=== PATIENT | female | born 1975 | race Two or more races ===

== ENCOUNTER 2024-04-29 03:03 | Emergency (ER) | payer MEDICAID, SELFPAY ==
[2024-04-29 03:03] VITALS: BMI 23.6
[2024-04-29 03:11] VITALS: BP 117/58; PULSE 70; RESP 18; TEMP 36.8; O2SAT 100
--- NOTE | 2024-04-29 03:15 | XR_ITS ---
Examination: Wrist, left 3 views Technique: Wrist AP, oblique, lateral 3 views Date and time of exam: April 29, 2024, 0318 hrs. Indications: Patient fell today with injury to the wrist, wrist pain Findings: Acute comminuted impacted intra-articular fracture distal radial metaphysis Carpal bones intact Impression: Acute comminuted impacted intra-articular fracture distal radial metaphysis
--- NOTE | 2024-04-29 03:19 | PD.EDHAND ---
Upper Extremity Injury RME/HPI General Chief Complaint: Extremity Injury, Upper Stated Complaint: L hand pain s/p fall Time Seen by Provider: 04/29/24 03:15 Arrival date/time: 04/29/24 03:03 48F with no significant PMH presents to ED with L hand/wrist pain after trip and fall. Patient denies hitting head. Limitations: no limitations Related Data Previous Rx's ?Medication ?Instructions ?Recorded albuterol sulfate 90 mcg/actuation 2 puff inhalation QID PRN 07/19/19 aerosol inhaler shortness of breath or wheezing #18 grams sodium chloride 0.65 % nasal spray 2 spray intranasal QID #60 mL 07/19/19 aerosol (Saline Nasal) azithromycin 250 mg tablet See Rx Instructions PO .COMPLEX #6 07/20/19 tabs dextromethorphan-guaifenesin 5 10 ml PO Q8H #118 mL 07/20/19 mg-100 mg/5 mL oral liquid (Robitussin Cough-Chest Congestion DM) cefpodoxime 200 mg tablet 200 mg PO BID #4 tabs 07/29/19 folic acid 1 mg tablet 1 mg PO QDAY #30 tabs 07/29/19 vit,calcium 27-ferrous 1 tab PO DAILY #30 tabs 07/29/19 fum 60 mg iron-folic acid 1 mg tablet (Trinatal Rx 1) hydrocodone 5 mg-acetaminophen 325 1 tab PO Q4HR PRN Patient rated 11/05/19 mg tablet pain 7 to 8 #30 tabs ibuprofen 400 mg tablet 800 mg (2 x 400 mg) PO Q8HR PRN 11/05/19 Pain Scale 4-6 (Moderate #30 tabs Allergies Allergy/AdvReac Type Severity Reaction Status Date / Time No Known Allergies Allergy Verified 04/29/24 03:06 Review of Systems Review of Systems Systems Reviewed: All systems reviewed, normal except as documented Constitutional Constitutional: Reports system reviewed and no additional complaints, except as documented, Denies fever(s) and Denies headache(s) ENT Ears, Nose, Mouth, and Throat: Denies disequilibrium and Denies headache(s) Cardiovascular Cardiovascular: Reports system reviewed and no additional complaints, except as documented, Denies chest pain and Denies dyspnea Respiratory Respiratory: Reports system reviewed and no additional complaints, except as documented, Denies cough and Denies dyspnea Gastrointestinal Gastrointestinal: Reports system reviewed and no additional complaints, except as documented, Denies abdominal pain, Denies nausea and Denies vomiting Musculoskeletal Musculoskeletal: Reports as per HPI and Reports arthralgias Neurologic Neurologic: Reports system reviewed and no additional complaints, except as documented, Denies confusion, Denies disequilibrium and Denies headache(s) Psychiatric Psychiatric: Denies confusion Past Medical History Past Medical History NEUROLOGIC: Negative Neurological Disorders or Seizures CARDIAC: Negative Cardiac Disorders or Congestive Heart Failure RESPIRATORY: Negative Chronic Obstructive Pulmonary Disease (COPD) GASTROINTESTINAL: Negative Gastrointestinal Disorders or Hepatitis GENITOURINARY: Negative Genitourinary Disorders or Renal Disease MUSCULOSKELETAL: Negative Musculoskeletal Disorders ENDOCRINE: Negative Endocrine Disorders, Diabetes Mellitus Type 1 or Diabetes Mellitus Type 2 HEMATOLOGIC: Negative Blood Disorders OTHER HISTORY: Positive Hospitalization (PNEUMONIA AND CHILDBIRTH); Negative Autoimmune Disease, Down Syndrome, Developmental Delay, Shingles, Falls, Blood Transfusions, Anesthesia Reactions, MRSA, VRSA, Vancomycin-Resistant Enterococci, Human Immunodeficiency Virus (HIV), Chicken Pox, Measles, Mumps, Rubella ([place] Measles), Pertussis, Clostridium Difficile or Cancer Family History FAMILY HISTORY: Positive Family Cancer (MOTHER- SKIN CA.); Negative Family Psychiatric Problems, Family Respiratory Disorders, Family Cardiac Disorders, Family Gastrointestinal Problems or Family Surgery Surgical History SURGICAL: Positive Section (2) Social History SMOKING STATUS: Never smoker ED Exam General Limitations: Present no limitations General appearance: Present alert and in no apparent distress Head Head exam: Present atraumatic Eye Eye exam: Present normal appearance, PERRL and EOMI ENT ENT exam: Present normal exam, normal oropharynx and mucous membranes moist Neck Neck exam: Present normal inspection, full ROM and trachea midline Chest Chest inspection: Present normal inspection and symmetric chest wall rise Respiratory Respiratory exam: Present normal lung sounds bilaterally Cardiovascular Cardiovascular exam: Present regular rate, normal rhythm and normal heart sounds Abdominal Exam Abdominal exam: Present soft and normal bowel sounds Expanded Upper Extremity Exam Forearm/Wrist exam: Present tenderness (L) and swelling Back Exam Back exam: Present normal inspection and full ROM Neurological Exam Neurological exam: Present alert, oriented X3 and CN II-XII intact Psychiatric Psychiatric exam: Present normal affect and normal mood Skin Skin exam: Present warm, dry, intact and normal color Course Quality Measures none Orders Category Date Time Status Splint / Immobilizer STAT Care 04/29/24 03:26 Active XR wrist comp LT min 3V Stat Exams 04/29/24 03:15 Taken HYDROcodone*/APAP 5/325 [[place] 5/325] Med 04/29/24 03:17 Discontinued 1 tab PO X1 ONE Vital Signs Vital signs: Vital Signs Temperature 98.3 F 04/29/24 03:11 Pulse Rate 70 04/29/24 03:11 Respiratory Rate 18 04/29/24 03:11 Blood Pressure 117/58 L 04/29/24 03:11 Pulse Oximetry (%) 100 04/29/24 03:11 Oxygen Delivery Method Room Air 04/29/24 03:11 O2 at 100% on RA and WNLs Extremity Injury MDM Narrative MDM Narrative:: 48F with no significant PMH presents to ED with L hand/wrist pain after trip and fall. Patient denies hitting head. Physical exam reveals L wrist tenderness and swelling. Reduced ROM. Patient can move fingers. No anatomical snuffbox tenderness. Patient is afebrile, alert, but appears to be in pain. Wet XR read comminuted L radial fx pending official report. Given splint, meds, and treatment counselor to Dr. Salvador's office in AM to see when he can see patient. Patient data External records reviewed:: [facility] previous records Clinical information provided by:: patient Social determinants that could affect healthcare access:: none Patient has the following chronic illnesses:: none How is presenting disease/condition affected by chronic disease/condition?: no chronic disease Evaluation data The following diagnostics were reviewed and interpreted by me:: radiology exam(s) Lab and/or radiology exams considered but not ordered:: ordered Interpretation Summary: above Medications / Prescriptions Medications or Prescriptions considered but not ordered:: ordered Medication administrations:: Medication Administration History Discontinued Medications Hydrocodone Bitart/Acetaminophen (Hydrocodone/Apap 5/325 Tablet) 1 tab PO X1 ONE Stop: 04/29/24 03:18 Last Admin: 04/29/24 03:31 Dose: 1 tab Documented By: KG above Consultations Consultation(s) initiated? (list below): No Diagnosis Upper Extremity Injury Differential Diagnosis: sprain and strain of wrist, fracture of wrist, finger sprain, dislocation of finger, Colles' fracture and fracture of hand Most likely diagnosis given after review of the tests above:: wrist fx Admission Indicated Admission indicated?: not indicated Admission Request Was there a request for admission?: No Disposition Plan Disposition Plan: Discharge Discharge Attestation Discharge Attestation: The patient and all family members were given an opportunity to ask questions and understood the discharge instructions. Discharge instructions specifically effects, indications for sooner follow up or return to the emergency department, and the expected course of current diagnosis. Patient condition: Stable Discharge Plan Plan Patient Disposition: HOME (Self Care) Disposition Comment: Stable Prescriptions/Referrals Prescriptions/Med Rec: No Action albuterol sulfate 90 mcg/actuation HFA aerosol inhaler 2 puff IH QID PRN (Reason: shortness of breath or wheezing) Qty: 18 0RF sodium chloride [Saline Nasal] 0.65 % aerosol,spray 2 spray INTRANASAL QID Qty: 60 0RF hydrocodone-acetaminophen 5-325 mg Tablet 1 tab PO Q4HR MDD 6 PRN (Reason: Patient rated pain 7 to 8) Qty: 30 0RF ibuprofen 400 mg Tablet 800 mg PO Q8HR PRN (Reason: Pain Scale 4-6 (Moderate) Qty: 30 0RF Robitussin Cough-Chest Mickey DM 5-100 mg/5 mL liquid 10 ml PO Q8H Qty: 118 0RF azithromycin 250 mg tablet See Rx Instructions .ROUTE .COMPLEX Qty: 6 0RF Rx Instructions: take 500 mg today (day 1), then 250 mg for 4 days (days 2-5) folic acid 1 mg Tablet 1 mg PO QDAY Qty: 30 0RF Trinatal Rx 1 60 mg iron-1 mg Tablet 1 tab PO DAILY Qty: 30 0RF cefpodoxime 200 mg tablet 200 mg PO BID Qty: 4 0RF Rx Instructions: Please take with food. Start 07/29. Citizen Of [place]-language label. Referrals: Rolando Salvador MD [Physician] - In 1 week (Call his office in the AM. ) Problem List Clinical Impression: Fracture of wrist Patient/Caregiver Discharge Instructions Education Materials: ED Fracture, Wrist, General Additional Instructions: Please follow-up with PCP within 24-48 hours and return immediately if symptoms worsen. Call Dr. Salvador's office tomorrow to see when he can see you. Make sure to bring disk. Print Language: Citizen Of [place] Stand Alone Forms: Patient Portal Info Letter PA/[employer] Supervising Physician PA/[employer] Supervising Physician: Dr. Garcia
[2024-04-29] MEDS: HYDROcodone/APAP 5/325 TABLET 1 TAB PO (03:31)
== END 2024-04-29 03:54 | disposition home or self-care (01) ==
LOC: SERX 04:13
PROVIDERS: Emergency Provider Emergency Medicine; PCP Family Medicine
DX: S52.572A Other intraarticular fracture of lower end of left radius, initial encounter for closed fracture (principal); W01.0XXA Fall on same level from slipping, tripping and stumbling without subsequent striking against object, initial encounter
CPT/HCPCS: 29125; 73110; 99283; A9270

== ENCOUNTER → 2024-05-18 | Outpatient (CLI) | payer MEDICAID, SELFPAY ==
--- NOTE | 2024-05-18 09:52 | XR_ITS ---
Examination: Hand, left 3 views Technique: Hand AP, oblique, lateral 3 views Date and time of exam: May 18, 2024 1057 hours Comparison April 29, 2024 INDICATIONS: Acute comminuted intra-articular fracture distal radial metaphysis April 29, 2024 FINDINGS: Partial healing intra-articular comminuted fracture distal radial metaphysis, stable alignment compared with April 29, 2024 IMPRESSION: Partial healing comminuted fracture distal radial metaphysis with stable alignment compared with April 29, 2024
--- NOTE | 2024-05-18 09:52 | XR_ITS ---
Examination: Wrist, left 3 views Technique: Wrist AP, oblique, lateral 3 views Date and time of exam: May 18, 2024 1057 hours Comparison April 29, 2024 INDICATIONS: Acute intra-articular comminuted fracture distal radial metaphysis April 29, 2024 FINDINGS: Partial healing intra-articular comminuted fracture distal radial metaphysis Stable and satisfactory alignment IMPRESSION: Partial healing intra-articular comminuted fracture distal radial metaphysis Stable and satisfactory alignment
== END | disposition home or self-care (01) ==
LOC: CDIM 09:26
PROVIDERS: PCP Nurse Practitioner Gerontology; Referring Provider Nurse Practitioner Gerontology; Visit Provider Nurse Practitioner Gerontology
DX: S52.92XA Unspecified fracture of left forearm, initial encounter for closed fracture (principal); X58.XXXA Exposure to other specified factors, initial encounter
CPT/HCPCS: 73110; 73130

== ENCOUNTER 2024-08-09 16:30 | Outpatient (RCR) | payer MEDICAID, SELFPAY ==
--- NOTE | 2024-07-19 14:13 | PT.OIERPT ---
PT OP Initial Eval Patient Information Outpatient Physical Therapy Treatment Date: 07/19/24 Visit Reasons: Left hand surgery Medical Diagnosis: G56.02 S52.502 Treatment Dx #1: L hand and wrist weakness Treatment Dx #2: L wrist pain Start of Care: 07/19/24 Date of Onset: 06/09/24 Smoking Status Smoking Status: Never smoker Initial Assessment Subjective: Pt is 49 yr old female s/p fall with L distal radius FX with ORIF reports difficulty making full fist, mopping, sweeping doing HH chores. The pain is worse at night. PMH: pre-DM Imaging: Xray Partial healing intra-articular comminuted fracture distal radial metaphysis Pt goal: to make a fist, speech pathologist assistant, move like before Objective: Al speech pathologist assistant strength: L: 10 lbs, R: 42 lbs L wrist AROM: Flexion: 25 deg Extension: 0 neutral Opposition: able- thumb to all digits Fist ArOM: 50% flexion Assessment: Pt presentation consistent with referring Dx of L distal radius ORIF with decreased wrist and digit ROM, speech pathologist assistant strength and function. Pt requires skilled therapy to meet goals and has good rehab potential. Short Term and Senior Living Goals 1. Ind with HEP 2. Improved L wrist flexion and extension to 45 deg 3. Improved speech pathologist assistant strength to at least 30 lbs to open bottles 4. Pt will make a full fist Treatment Plan ?1. Manual therapy ? 2. Therex ? 3. Modalities as indicated, moist heat, ice, estim Frequency and Duration: 2x a week for 18 visits plus the evaluation. We will need provider's signature on this note to go past 12. Certification Dates: 07/19/24 to 10/18/24 Procedure Charges OP PT Eval Mod Complex 30 minutes: Yes
--- NOTE | 2024-07-26 18:27 | PT.ODAYNRPT ---
PT Outpatient Daily Note OP Daily Note Outpatient Physical Therapy Treatment Date: 07/26/24 Visit Reasons: Left hand surgery Subjective: Doing HEP of self stretches into fist Objective: MHP x5' See F/S for therex PROM into digit flexion to make fist x7' Assessment: Improved PROM of MCP's and PIPs to about 90 deg flexion but DIP's are still limited into flexion Plan: Continue per POC Length of Time (minutes) of Treatment: 30 Minutes Procedure Charges Therapeutic Exercise 30 minutes: Yes
--- NOTE | 2024-07-28 17:07 | PT.ODAYNRPT ---
PT Outpatient Daily Note OP Daily Note Outpatient Physical Therapy Treatment Date: 07/28/24 Visit Reasons: Left hand surgery Subjective: Doing HEP of self stretches into fist Objective: MHP x5' See F/S for therex PROM into digit flexion to make fist x7' Assessment: Improved PROM of MCP's and PIPs to about 90 deg flexion but DIP's are still limited into flexion. Wrist extension is limited to about 10 deg by pain. Plan: Continue per POC Length of Time (minutes) of Treatment: 30 Minutes Procedure Charges Therapeutic Exercise 30 minutes: Yes
--- NOTE | 2024-08-09 18:13 | PT.ODAYNRPT ---
PT Outpatient Daily Note OP Daily Note Outpatient Physical Therapy Treatment Date: 08/09/24 Visit Reasons: Left hand surgery Subjective: Doing HEP of self stretches into fist Objective: MHP x5' See F/S for therex PROM into digit flexion to make fist and wrist flexion/extension x7' Assessment: Improved PROM of MCP's and PIPs to about 90 deg flexion but DIP's are still limited into flexion. Wrist extension is limited to about 10 deg by pain. Plan: Continue per POC Length of Time (minutes) of Treatment: 30 Minutes Procedure Charges Therapeutic Exercise 30 minutes: Yes
== END 2024-08-15 23:59 | disposition home or self-care (01) ==
LOC: CPTX 16:30
PROVIDERS: PCP Surgery Surgery of the Hand; Referring Provider Surgery Surgery of the Hand; Visit Provider Surgery Surgery of the Hand
DX: M25.532 Pain in left wrist (principal); R53.1 Weakness; S52.502D Unspecified fracture of the lower end of left radius, subsequent encounter for closed fracture with routine healing; W19.XXXD Unspecified fall, subsequent encounter; G56.02 Carpal tunnel syndrome, left upper limb
CPT/HCPCS: 97110; 97162

== ENCOUNTER 2025-02-11 16:42 | Emergency (ER) | payer MEDICAID, SELFPAY ==
[2025-02-11 16:42] VITALS: BMI 24.4
[2025-02-11 17:24] VITALS: BP 121/73; PULSE 68; RESP 16; TEMP 36.8; O2SAT 99
--- NOTE | 2025-02-11 17:56 | PD.EDALLER ---
ED Allergic Reaction RME/HPI General Chief complaint: Allergic Reaction Stated complaint: GENERALIZED BODY HIVES & ITCHINESS X2 WEEKS Time Seen by Provider: 02/11/25 17:50 Source: patient Arrival date/time: 02/11/25 16:42 Mode of arrival: ambulatory Limitations: language barrier RME / HPI RME / HPI narrative: Patient is a very pleasant Faroese-speaking only 49-year-old female who arrives to the ED today for evaluation of global rash concerns for the past 10 days. Patient states the rash came up approximate 10 days ago and has been relatively unrelenting. Patient was seen by her primary care provider and given prednisone and an antihistamine. Patient states the medication is are not resolving the situation. Patient arrives with rash to bilateral arms and itching concerns. Vital signs were stable. Related Data Previous Rx's ?Medication ?Instructions ?Recorded albuterol sulfate 90 mcg/actuation 2 puff inhalation QID PRN 07/19/19 aerosol inhaler shortness of breath or wheezing #18 grams sodium chloride 0.65 % nasal spray 2 spray intranasal QID #60 mL 07/19/19 aerosol (Saline Nasal) azithromycin 250 mg tablet See Rx Instructions PO .COMPLEX #6 07/20/19 tabs dextromethorphan-guaifenesin 5 10 ml PO Q8H #118 mL 07/20/19 mg-100 mg/5 mL oral liquid (Robitussin Cough-Chest Congestion DM) cefpodoxime 200 mg tablet 200 mg PO BID #4 tabs 07/29/19 folic acid 1 mg tablet 1 mg PO QDAY #30 tabs 07/29/19 vit,calcium 27-ferrous 1 tab PO DAILY #30 tabs 07/29/19 fum 60 mg iron-folic acid 1 mg tablet (Trinatal Rx 1) hydrocodone 5 mg-acetaminophen 325 1 tab PO Q4HR PRN Patient rated 11/05/19 mg tablet pain 7 to 8 #30 tabs ibuprofen 400 mg tablet 800 mg (2 x 400 mg) PO Q8HR PRN 11/05/19 Pain Scale 4-6 (Moderate #30 tabs hydroxyzine HCl 25 mg tablet 25 mg PO TID PRN itching #14 tabs 02/11/25 Allergies Allergy/AdvReac Type Severity Reaction Status Date / Time No Known Allergies Allergy Verified 02/11/25 16:45 Review of Systems Review of Systems Systems Reviewed: All systems reviewed, normal except as documented Past Medical History Past Medical History NEUROLOGIC: Negative Neurological Disorders or Seizures CARDIAC: Negative Cardiac Disorders or Congestive Heart Failure RESPIRATORY: Negative Chronic Obstructive Pulmonary Disease (COPD) GASTROINTESTINAL: Negative Gastrointestinal Disorders or Hepatitis GENITOURINARY: Negative Genitourinary Disorders or Renal Disease MUSCULOSKELETAL: Negative Musculoskeletal Disorders ENDOCRINE: Negative Endocrine Disorders, Diabetes Mellitus Type 1 or Diabetes Mellitus Type 2 HEMATOLOGIC: Negative Blood Disorders OTHER HISTORY: Positive Hospitalization (PNEUMONIA AND CHILDBIRTH); Negative Autoimmune Disease, Down Syndrome, Developmental Delay, Shingles, Falls, Blood Transfusions, Anesthesia Reactions, MRSA, VRSA, Vancomycin-Resistant Enterococci, Human Immunodeficiency Virus (HIV), Chicken Pox, Measles, Mumps, Rubella ([place] Measles), Pertussis, Clostridium Difficile or Cancer Family History FAMILY HISTORY: Positive Family Cancer (MOTHER- SKIN CA.); Negative Family Psychiatric Problems, Family Respiratory Disorders, Family Cardiac Disorders, Family Gastrointestinal Problems or Family Surgery Surgical History SURGICAL: Positive Section (2) Social History SMOKING STATUS: Never smoker ED Exam Narrative Physical exam: Patient appears uncomfortable due to the pruritus on her bilateral forearms. General Limitations: Present language barrier General appearance: Present alert Head Head exam: Present atraumatic Eye Eye exam: Present normal appearance, PERRL and EOMI ENT ENT exam: Present normal exam, normal oropharynx and mucous membranes moist Neck Neck exam: Present normal inspection, full ROM and trachea midline Chest Chest inspection: Present normal inspection and symmetric chest wall rise Respiratory Respiratory exam: Present normal lung sounds bilaterally Cardiovascular Cardiovascular exam: Present regular rate, normal rhythm and normal heart sounds Abdominal Exam Abdominal exam: Present soft and normal bowel sounds Extremities Exam Extremities exam: Present normal inspection and full ROM Back Exam Back exam: Present normal inspection and full ROM Neurological Exam Neurological exam: Present alert, oriented X3 and CN II-XII intact Psychiatric Psychiatric exam: Present normal affect and normal mood Skin Skin exam: Present warm, dry and other (Patient displays a mild to moderate urticaric rash on bilateral forearms extending up into the upper arm as well as on her belly. No signs of infection.) Course Quality Measures none Vital Signs Vital signs: Vital Signs Temperature 98.2 F 02/11/25 17:24 Pulse Rate 68 02/11/25 17:24 Respiratory Rate 16 02/11/25 17:24 Blood Pressure 121/73 02/11/25 17:24 Pulse Oximetry (%) 99 02/11/25 17:24 Oxygen Delivery Method Room Air 02/11/25 17:24 As noted above Allergic Reaction MDM Narrative MDM Narrative:: Spent time discussing the concerns of the patient. Advised that she is on the proper medications to address her concerns. Due to the length of time that this allergic reaction has been affecting her, I advised the patient to follow-up with her primary care provider for an relocation specialist referral and evaluation to assess what appears to be environmental concerns related to her urticaric response. Patient will be sent home with some hydroxyzine to aid in the pruritus. Patient data External records reviewed:: [facility] previous records Clinical information provided by:: patient Social determinants that could affect healthcare access:: none Patient has the following chronic illnesses:: None How is presenting disease/condition affected by chronic disease/condition?: no chronic disease Evaluation data The following diagnostics were reviewed and interpreted by me:: other (specify) (None) Lab and/or radiology exams considered but not ordered:: None Interpretation Summary: None Medications / Prescriptions Medications or Prescriptions considered but not ordered:: None Medication administrations:: None Consultations Consultation(s) initiated? (list below): No Diagnosis Differential Diagnosis allergic reaction: allergic reaction and urticaria Most likely diagnosis given after review of the tests above:: Allergic reaction, urticaria Admission Indicated Admission indicated?: not indicated Explain why admission is indicated or not indicated:: Unwarranted Admission Request Was there a request for admission?: No Disposition Plan Disposition Plan: Discharge Discharge Attestation Discharge Attestation: The patient and all family members were given an opportunity to ask questions and understood the discharge instructions. Discharge instructions specifically effects, indications for sooner follow up or return to the emergency department, and the expected course of current diagnosis. Patient condition: Stable Discharge Plan Plan Patient Disposition: HOME (Self Care) Prescriptions/Referrals Prescriptions/Med Rec: New hydroxyzine HCl 25 mg tablet 25 mg PO TID PRN (Reason: itching) Qty: 14 0RF No Action albuterol sulfate 90 mcg/actuation HFA aerosol inhaler 2 puff IH QID PRN (Reason: shortness of breath or wheezing) Qty: 18 0RF sodium chloride [Saline Nasal] 0.65 % aerosol,spray 2 spray INTRANASAL QID Qty: 60 0RF hydrocodone-acetaminophen 5-325 mg Tablet 1 tab PO Q4HR MDD 6 PRN (Reason: Patient rated pain 7 to 8) Qty: 30 0RF ibuprofen 400 mg Tablet 800 mg PO Q8HR PRN (Reason: Pain Scale 4-6 (Moderate) Qty: 30 0RF Robitussin Cough-Chest Mickey DM 5-100 mg/5 mL liquid 10 ml PO Q8H Qty: 118 0RF azithromycin 250 mg tablet See Rx Instructions .ROUTE .COMPLEX Qty: 6 0RF Rx Instructions: take 500 mg today (day 1), then 250 mg for 4 days (days 2-5) folic acid 1 mg Tablet 1 mg PO QDAY Qty: 30 0RF Trinatal Rx 1 60 mg iron-1 mg Tablet 1 tab PO DAILY Qty: 30 0RF cefpodoxime 200 mg tablet 200 mg PO BID Qty: 4 0RF Rx Instructions: Please take with food. Start 07/29. Faroese-language label. Problem List Clinical Impression: Urticaria, Allergic reaction Patient/Caregiver Discharge Instructions Education Materials: ED Hives (Adult) Additional Instructions: Advise utilizing medication as needed for symptomatic relief in addition, patient should follow-up with primary care provider for relocation specialist referral and evaluation. Print Language: [place]oese Stand Alone Forms: Cheryl Award Info., Patient Portal Info Letter
== END 2025-02-11 19:28 | disposition home or self-care (01) ==
LOC: SERX 18:56
PROVIDERS: Emergency Provider Physician Assistant
DX: L50.0 Allergic urticaria (principal)
CPT/HCPCS: 99281